=== PATIENT | male | born 1955 | race Caucasian/White ===

== ENCOUNTER 2019-10-21 23:47 | Observation (INO) | payer MEDICARE, MEDICAID ==
[2019-10-22] MEDS ORDERED: Acetaminophen 325 MG TAB PO PRN (01:02)
[2019-10-22] MEDS ORDERED: Nitroglycerin 0.4 MG TAB (25 Tab Bottle) PO PRN (01:06)
--- NOTE | 2019-10-22 01:33 | PDOC.HHP ---
Hospitalist HPI - History of Present Illness SOB History of Present Illness: PCP: Dr. Paulson The patient is a 64/M with PMH significant for tobacco and alcohol abuse presents to [place] [facility] for above complaint. The patient reports acute onset of SOB with associated heart palpitations, approximately 2 hours prior to going to the ER. Denies any chest pain, swelling to LE, fever, chills, cough or wheezing. ED Course: [place] [facility] EKG afib with RVR and hypotensive (SBPO 80s and 90s) troponin negative LA 2.6 BNP 209 CMP, CBC unremarkable Given cardizem 20mg IVP 4L NS ASA and LMWH 1mg/kg Transferred to [place] [facility] Trop negative Given IVF at 75mls/hr Hospitalist ROS - Review of Systems Constitutional: denies: fever, chills, sweats, weakness, malaise, other Eyes: denies: pain, vision change, conjunctivae inflammation, eyelid inflammation, redness, other ENT: denies: ear pain, ear discharge, nose pain, nose discharge, nose congestion , mouth pain, mouth swelling, throat pain, throat swelling, other Respiratory: reports: shortness of breath. denies: cough, hemoptysis, pleuritic pain, sputum Cardiovascular: reports: palpitations. denies: chest pain, orthopnea, paroxysmal noc. dyspnea, edema, light headedness Gastrointestinal: denies: nausea, vomiting, abdominal pain, diarrhea, constipation, melena, hematochezia, other Genitourinary: denies: dysuria, frequency, incontinence, hematuria, retention, other Musculoskeletal: denies: neck pain, shoulder pain, arm pain, back pain, hand pain, leg pain, foot pain, other Skin: denies: rash, lesions, rand, bruising, other Neurological: denies: weakness, numbness, incoordination, change in speech, confusion, seizures, other Hospitalist History - Past Medical History Source: patient Cardiac: reports: no pertinent history Pulmonary: reports: no pertinent history - Past Surgical History Past Surgical History: reports: no pertinent history - Family History Family History: reports: cardiac disorder - Social History Smoking Status: Current every day smoker Tobacco Type: chewing tobacco Alcohol: reports: Heavy Drugs: reports: none Activity level: independent ambulation - Exam General Appearance: NAD, awake alert Eye: anicteric sclera ENT: normocephalic atraumatic Neck: supple, no JVD, no thyromegaly Heart: no murmur, no gallops, no rubs, normal peripheral pulses, irregular Respiratory: CTAB, no wheezes, no rales, no ronchi, no tachypnea Gastrointestinal: soft, non-tender, non-distended, normal bowel sounds, no guarding, no rigidity Extremities: no cyanosis, no edema Skin: normal turgor, no rashes Neurological: no focal deficits Musculoskeletal: normal tone, normal strength Psychiatric: normal affect, A&O x 3 Hospitalist Results - Labs Lab results: Lactic Acid 1.5 mmol/L (0.5-2.2) 10/22/19 00:12 Troponin I Less than 0.010 ng/mL (< 0.028) 10/22/19 00:12 - EKG Interpretation EKG: afib rate controlled 80s - Radiology Interpretation Chest x-ray Status: report reviewed by az Hospitalist H&P A/P - Problem (1) Atrial fibrillation with rapid ventricular response Code(s): I48.91 - UNSPECIFIED ATRIAL FIBRILLATION Status: Acute Assessment and Plan: Admit telemetry floor, observation status Expected stay less than 24 hours Currently afib, rate controlled, asymptomatic Continue LMWH 1mg/kg Give Cardizem CD 120mg x 1 dose now Start cardizem CD 120 mg daily Trend troponins Get FLP, magnesium level and check UDS Echocardiogram Consult Cardiology (2) Hypotension Status: Acute Assessment and Plan: Currently resolved continue IVF at 75ml/hr (3) Tobacco abuse Code(s): Z72.0 - TOBACCO USE Status: Chronic Assessment and Plan: Smokes 1 pack per week, smoking since 9 years old Dips 1 can snuff per week Start NRT therapy Tobacco cessation counseling (4) Alcohol abuse Code(s): F10.10 - ALCOHOL ABUSE, UNCOMPLICATED Status: Chronic Assessment and Plan: Plasma alcohol < 10 Drinks 6 pack twice per week ASE protocol Discussed alcohol cessation (5) Elevated random blood glucose level Code(s): R73.09 - OTHER ABNORMAL GLUCOSE Status: Acute Assessment and Plan: Mildly elevated Will Recheck BMP in am - Plan Plan: Consult walking program GI prophylaxis SCDs DVT prophylaxis Full Code DPOA Pietro Campbell at [phone] Herrera
[2019-10-22] MEDS ORDERED: Diazepam 5 MG TAB PO PRN (01:47)
[2019-10-22] MEDS ORDERED: Thiamine HCl 200 MG/2 ML VIAL IM SCH (02:00)
[2019-10-22] MEDS ORDERED: Magnesium 2 GM/50 ML 2 GM in Premix Bag 1 BAG IVPB SCH (02:15)
[2019-10-22 02:50] LABS: #Basophils 0.1 thou/uL (0.0-0.2); #Eosinphils 0.3 thou/uL (0.0-0.7); #Lymphocytes 2.6 thou/uL (1.20-3.40); #Monocytes 0.6 thou/uL (0.11-0.59); %Basophils 0.7 % (0.0-1.0); %Eosinophils 3.1 % (0.0-10.0); %Lymphocytes 30.7 % (21.0-51.0); %Neutrophils 58.5 % (42.0-75.0); Hemoglobin 13.7 g/dL (14.0-18.0); Mean Corpuscular HGB CONC 33.8 g/dL (32.0-36.0); Mean Corpuscular Hemoglobin 31.3 pg (27.0-31.0); Mean Corpuscular Volume 92.5 fL (78.0-98.0); Mean Platelet Volume 7.9 fL (7.4-10.4); Platelet Count 269 thou/uL (130-400); RBC Distribution Width 12.5 % (11.5-14.5); Red Blood Cell (RBC) Count 4.39 mill/uL (4.70-6.10); White Blood Cell (WBC) Count 8.6 thou/uL (4.8-10.8)
[2019-10-22 03:37] LABS: Anion Gap 13 mmol/L (10-20); BUN (Urea Nitrogen) 25 mg/dL (8.4-25.7); Calc. Creatinine Clearance 101 mL/min (70-130); Carbon Dioxide 21 mmol/L (23-31); Cardiac Risk 3.1 (Less than 4.5); Chloride 110 mmol/L (98-107); Cholesterol 141 mg/dl (< 200 Desired); Estimated GFR-MDRD 88; Glucose 90 mg/dL (80-115); HDL Cholesterol 45 mg/dL (>60 Neg Risk); LDL Cholesterol, Calculated 69 mg/dL; Magnesium 1.8 mg/dL (1.6-2.6); Potassium 4.1 mmol/L (3.5-5.1); Sodium 140 mmol/L (136-145); Triglycerides 136 mg/dL (Less than 150)
[2019-10-22 03:42] LABS: Troponin I Less than 0.010 ng/mL (< 0.028)
[2019-10-22] MEDS: Sodium Chloride 0.9% 1,000 ML IV SCH ×2 (03:55→15:31)
[2019-10-22 03:56] VITALS: BMI 28.8
[2019-10-22] MEDS: Enoxaparin Sodium 100 MG/ML SYRINGE SC SCH ×2 (08:55→21:15)
[2019-10-22] MEDS: Famotidine 20 MG TAB PO SCH ×2 (08:56→21:16)
[2019-10-22] MEDS: Folic Acid 1 MG TAB PO SCH (08:56)
[2019-10-22] MEDS: Multivitamin W/ Minerals 1 TAB PO SCH (08:56)
[2019-10-22] MEDS: Nicotine 14 MG PATCH TD SCH (08:59)
[2019-10-22] MEDS ORDERED: Aspirin 81 mg Enteric Coated Tablet PO SCH (09:00)
[2019-10-22 09:01] LABS: Hemoglobin 13.1 g/dL (14.0-18.0); Platelet Count 255 thou/uL (130-400)
[2019-10-22 09:19] LABS: Calc. Creatinine Clearance 110 mL/min (70-130); Estimated GFR-MDRD Greater than 90
[2019-10-22] MEDS ORDERED: Iopamidol 370 76% 100 ML VIAL ONE (12:50)
--- NOTE | 2019-10-22 16:51 | CON ---
DATE OF CONSULTATION: 10/22/2019 REASON FOR CONSULTATION: Atrial fibrillation. HISTORY OF PRESENT ILLNESS: Mr. Campbell is a pleasant 64-year-old white gentleman, who comes to the hospital for palpitations. He went to the [facility]. An EKG was done and showed atrial fibrillation RVR, so he was transferred over to [facility]. He was started on diltiazem drip, eventually was rate controlled. He denies any chest pain, tightness, or pressure. No shortness of breath. He feels much better now. On my evaluation, he is rate controlled with heart rates in the 60s to 70s. PAST MEDICAL HISTORY: 1. He thinks he may have been told that he had high blood pressure, but he is not taking any medications for high blood pressure. 2. He tells me he thinks he had a stroke about 2 or 3 years ago. He describes an episode of not feeling well. He did not come to the hospital or saw a physician for this. He just went home from work, but he is pretty sure he had a stroke, but he never got evaluated for this. PAST SURGICAL HISTORY: None. FAMILY HISTORY: Family member with cardiac disease, but he is unaware of what type. SOCIAL HISTORY: Smokes every day. Uses about 3 or 4 beers every day. No drug use. OUTPATIENT MEDICATIONS: None. ALLERGIES: NO KNOWN DRUG ALLERGIES. REVIEW OF SYSTEMS: A 12-point review of systems was done and was all negative unless stated in the history of present illness. PHYSICAL EXAMINATION: VITAL SIGNS: Temperature 97.8, pulse rate 80, respiratory rate 15, sats 95% on room air, and blood pressure 122/77. GENERAL: Awake, alert, and oriented x3, in no distress. HEENT: Normocephalic and atraumatic. NECK: Supple. LUNGS: Clear. CARDIOVASCULAR: S1 and S2. Irregularly irregular heart rate in the 60s to 70s. A very soft 2/6 systolic murmur at the right upper sternal border. ABDOMEN: Soft. Positive bowel sounds. EXTREMITIES: No edema. SKIN: Warm and dry. LABORATORY DATA: Laboratory work was reviewed; CBC with a white count of 8, hemoglobin of 13, hematocrit of 40, and platelet count of 269. Chemistries were unremarkable except for chloride of 110 and carbon dioxide of 21, gap was 13, normal BUN and creatinine, troponins were negative x2. Magnesium was normal. Potassium was 4.1. Vitamin B12 was a little low at 170. Folate was normal. Triglycerides are 136, cholesterol 141, LDL 69, and HDL 45. EKG was reviewed; atrial fibrillation with RVR on admission, now rate controlled , telemetry. Echocardiogram was reviewed, EF of 60% to 65%, in atrial fibrillation, aortic root was dilated at 4.4 cm. ASSESSMENT/PLAN: 1. New onset atrial fibrillation. 2. CHADS-VASc score of 1, maybe 2 or maybe 4. It would be only 1 if this was only age at 64. However, if he does have high blood pressure that would be a 2, and if he does have a history of a stroke that would be 2 extra points, so maybe a 3 or 4. None of these diagnosis are confirmed. Regardless, I think he would benefit for full anticoagulation for stroke prophylaxis. 3. Dilated aortic root at 4.4 cm on echo. PLAN: 1. Would do CT angio of the chest to make sure there is no significant aneurysm that we need to keep monitoring. 2. Would agree with p.o. diltiazem currently at 120 mg a day. Continue as an outpatient. He is very well rate controlled with this. 3. Agree with magnesium supplementations that are already been given. 4. Thiamine and vitamin B12 for history of alcohol use. 5. I would do full anticoagulation in this case with Eliquis of 5 mg b.i.d. Hopefully, his insurance will cover this. If it does not, he may not be a good candidate for warfarin given his alcohol use and noncompliance. Otherwise, aspirin only for stroke prophylaxis if that is the case. 6. May be discharged home once he has had a CT angio of the chest. Thank you for letting us participate in the care of your patient. We will sign off. Please call with any questions. We will follow up in the office in 4 weeks. Job ID: [id number] MERI
--- NOTE | 2019-10-22 18:00 | CT ---
CT ANGIOGRAM CHEST WITH IV CONTRAST AND 3D MIP RECONSTRUCTIONS: 10/22/19 PROVIDED CLINICAL HISTORY: Aortic aneurysm. FINDINGS: The thoracic aorta measures 4 cm in greatest transverse dimension at the level of the aortic root. Th e ascending thoracic aorta measures about 3.7 cm maximally. The aortic arch and descending thoracic a yue are nonaneurysmal. Vascular calcification including coronary calcium is demonstrated. The heart , pericardium, and great vessels appear otherwise unremarkable. There is no evidence for thoracic lym ph node enlargement. The airway appears patent and of normal caliber. There is patchy ground glass opacity in a perihilar distribution centrally involving the right upper lobe. The lungs appear otherwise free of significant opacity. There is no pleural fluid, pleural thickening or pneumothorax apparent. The visualized portions of the upper abdomen demonstrate no significant abnormality. The partially vi sualized left renal cystic structure, the visualized portions of which appears simple. There is a rig ht adrenal lipid rich adenoma. There is fullness of the left adrenal gland without discrete mass. The osseous structures demonstrate no concerning lytic or blastic lesions. IMPRESSION: 1. Caliber of the ascending thoracic aorta as described. 2. Vascular calcification including coronary calcium. 3. Ground glass opacity in a perihilar distribution involving the right upper lobe, nonspecific. This could reflect infectious or inflammatory pneumonitis. POS: CRYSTAL
[2019-10-22] MEDS ORDERED: Prevnar 13-Val Conj/PF 0.5 ML SYRINGE IM ONE (21:00)
[2019-10-23] MEDS ORDERED: Diazepam 5 MG TAB PO PRN (04:00)
[2019-10-23] MEDS ORDERED: Magnesium Oxide 400 MG TAB PO SCH (09:00)
[2019-10-23] MEDS ORDERED: Thiamine 100 MG TAB PO SCH (09:00)
[2019-10-23] MEDS: Enoxaparin Sodium 100 MG/ML SYRINGE SC SCH (09:07)
[2019-10-23] MEDS: Folic Acid 1 MG TAB PO SCH (09:08)
[2019-10-23] MEDS: Multivitamin W/ Minerals 1 TAB PO SCH (09:08)
[2019-10-23] MEDS: Famotidine 20 MG TAB PO SCH (09:08)
[2019-10-23 09:16] VITALS: BP 125/68
[2019-10-23] MEDS: Nicotine 14 MG PATCH TD SCH (09:16)
[2019-10-23 09:49] VITALS: TEMP 97.4
--- NOTE | 2019-10-23 12:04 | PDOC.CPN ---
- Subjective Date: 10/23/19 Time: 11:46 Interval history: He is doing well. No chest pain. - Review of Systems General: denies: fever/chills, weight/appetite/sleep changes, night sweats, fatigue Respiratory: denies: cough, congestion, shortness of breath, exercise intolerance Cardiovascular: denies: chest pain, palpitation, edema, paroxysmal nocturnal dyspnea, orthopnea Gastrointestinal: denies: nausea, vomiting, diarrhea, constipation, abd pain, GI bleeding Musculoskeletal: denies: pain, tenderness, stiffness, swelling, arthritis/ arthralgias Neurological: denies: numbness, syncope, seizure, weakness - Objective Allergies/Adverse Reactions: Allergies Allergy/AdvReac Type Severity Reaction Status Date / Time No Known Allergies Allergy Unverified 10/22/19 01:08 Visit Medications: Current Medications Acetaminophen (Tylenol) 650 mg PO Q4H PRN PRN Reason: Headache/Fever/Mild Pain (1-3) Diazepam (Valium) 5 mg PO Q4H PRN PRN Reason: FOR ASE 10 OR GREATER Diltiazem HCl (Cardizem Cd) 120 mg PO DAILY [facility] Last Admin: 10/23/19 09:08 Dose: 120 mg Enoxaparin Sodium (Lovenox) 90 mg SC 0900,2100 [facility] Last Admin: 10/23/19 09:07 Dose: 90 mg Famotidine (Pepcid) 20 mg PO BID [facility] Last Admin: 10/23/19 09:08 Dose: 20 mg Folic Acid (Folvite) 1 mg PO DAILY [facility] Last Admin: 10/23/19 09:08 Dose: 1 mg Iron/Minerals/Multivitamins (Theragran M) 1 tab PO DAILY [facility] Last Admin: 10/23/19 09:08 Dose: 1 tab Magnesium Oxide (Magnesium Oxide) 400 mg PO DAILY [facility] Last Admin: 10/23/19 09:08 Dose: 400 mg Nicotine (Nicoderm Patch) 14 mg TD Q24HR [facility] Last Admin: 10/23/19 09:16 Dose: Not Given Nitroglycerin (Nitrostat) 0.4 mg PO Q5MIN PRN PRN Reason: Chest Pain Sodium Chloride (Flush - Normal Saline) 10 ml IVF PRN PRN PRN Reason: Saline Flush Thiamine HCl (Thiamine) 100 mg PO DAILY [facility] Last Admin: 10/23/19 09:08 Dose: 100 mg Vital Signs & Weight: Vital Signs Temp Pulse Resp BP BP Pulse Ox 10/23/19 09:08 87 125/68 10/23/19 08:00 97.4 F L 72 16 125/68 125/68 96 10/23/19 05:05 95 10/23/19 03:24 98.1 F 62 17 136/70 95 Weight 189 lb 1.06 oz - Physical Exam General: alert & oriented x3 HEENT: mucus membranes moist Neck: supple neck Cardiac: irregularly regular Lungs: clear to auscultation Neuro: grossly intact Abdomen: active bowel sounds Extremities: no edema Skin: clear Musculoskeletal: no pain - Labs Result Diagrams: 10/22/19 08:52 10/22/19 08:52 Troponin/CKMB Troponin I Less than 0.010 ng/mL (< 0.028) 10/22/19 02:37 - Telemetry Supraventricular conduction: atrial fibrillation - Assessment/Plan Assessment/Plan: 1. New onset Afib, rate controlled. 2. No ascending aortic aneurysm seen on CT. 3. Coronary calcifications. PLAN: - May discharge home. - No unstable symptoms. - Continue current dose of CCB and Eliquis 5 mg BID - Follow up in the office for risk stratification and follow up. - Will sign off. Please call with any questions.
--- NOTE | 2019-10-23 12:59 | DIS ---
DATE OF ADMISSION: 10/22/2019 DATE OF DISCHARGE: 10/23/2019 DISCHARGE DIAGNOSES: 1. Atrial fibrillation with rapid ventricular response. 2. Dilated aortic root at 4.4 cm. 3. Alcohol abuse. 4. Tobacco use. DISCHARGE MEDICATIONS: 1. Diltiazem CD 120 mg orally daily. 2. Eliquis 5 mg orally twice daily. HISTORY OF PRESENT ILLNESS AND HOSPITAL COURSE: The patient is a 64-year-old male with past medical history of hypertension, alcohol abuse, and tobacco smoking, who presented to the ER in [place] with complaints of shortness of breath. The patient was found to be tachycardic and his EKG revealed atrial fibrillation with rapid ventricular response. This was also associated with hypotension with systolic blood pressure in the 90s and elevated lactic acid at 2.6. The patient was given a loading dose of Cardizem IV 20 mg and 1 mg/kg low-molecular weight heparin and was transferred to our facility. The patient was started on IV fluids with normal saline at 75 mL/h, which led to improvement in his hypotension. He was started on Cardizem 120 mg orally daily, which helped control his rate. Cardiology Service consulted and recommended continuing Cardizem for rate control in addition to Eliquis for anticoagulation. Echocardiogram was performed showing EF of 60% to 65%. The aortic root was dilated at 4.4 cm. No evidence of intracardiac thrombosis. At this time, the patient is stable for discharge with outpatient followup with PCP in 1 week. Job ID: [id number]
--- NOTE | 2019-10-23 13:20 | EKG ---
Test Reason : Blood Pressure : / mmHG Vent. Rate : 082 BPM Atrial Rate : 101 BPM P-R Int : 000 ms QRS Dur : 112 ms QT Int : 392 ms P-R-T Axes : 000 065 052 degrees QTc Int : 457 ms Atrial fibrillation Incomplete right bundle branch block Abnormal ECG Confirmed by KOSTAS BROWN ([id number]), commissioning editor OZ MARLEY ([id number]) on 10/23/2019 1:19:49 PM Referred By: Confirmed By:KOSTAS Lozano
[2019-10-23] MEDS ORDERED: Apixaban 5 MG TAB PO SCH (21:00)
== END 2019-10-23 12:15 | disposition home or self-care (01) ==
LOC: ERS 23:47 → 2NO 10-22 00:55 → INTOOBSV 10-22 00:55
PROVIDERS: ADMIT Emergency Medicine; ATTEND Emergency Medicine
DX: I48.91 Unspecified atrial fibrillation (principal); I95.9 Hypotension, unspecified; F10.10 Alcohol abuse, uncomplicated; I77.819 Aortic ectasia, unspecified site; F17.220 Nicotine dependence, chewing tobacco, uncomplicated
CPT/HCPCS: 71275; 80048; 80061; 82565; 82607; 82746; 83605; 83735; 84484 ×2; 85014; 85018; 85025; 85049; 93005; 93306; 94760 ×2; 96360; 96361 ×2; 96372 ×2; 97139; 99285; G0378 ×3; 36415; J1650; J3411; J3475; J3490; Q9967